=== PATIENT | female | born 1985 | race Hispanic/Latino ===

== ENCOUNTER 2018-05-09 14:08 | Outpatient (CLI) | payer BC ==
--- NOTE | 2018-05-09 17:09 | ULT ---
LEFT LOWER EXTREMITY VENOUS DOPPLER: Date: 05/09/18 HISTORY: Left lower extremity edema. COMPARISON: None. TECHNIQUE: Real-time Sandoval scale and color Doppler with spectral analysis of the left lower extremity venous sys tem was performed. The common femoral, femoral, proximal portions of greater saphenous and deep femor al veins, as well as the popliteal and posterior tibial veins are interrogated. FINDINGS: Normal flow, augmentation, and compression. IMPRESSION: No deep venous thrombosis. POS: [facility]
== END 2018-05-09 14:09 | disposition home or self-care (01) ==
LOC: BICULT 14:08
PROVIDERS: ATTEND Family Medicine
DX: R60.0 Localized edema (principal)